=== PATIENT | male | born 1975 | race Two or more races ===

== ENCOUNTER 2021-04-26 00:52 | Emergency (ER) | payer SELFPAY ==
[~2021-04-26] VITALS: Ht 175.3 cm; Wt 65.8 kg
[2021-04-26 02:00] VITALS: BP 136/93
[2021-04-26] MEDS ORDERED: OXYCODONE W/ ACETAMINOPHEN 5/325MG TABLET PO ONE (03:00)
[2021-04-26] MEDS ORDERED: KETOROLAC TROMETH 30 MG/ML 1ML VIAL IM ONE (03:00)
[2021-04-26] MEDS ORDERED: diazePAM 5 MG TAB PO ONE (03:00)
== END 2021-04-26 06:04 | disposition home or self-care (01) ==
LOC: EDBD 00:52 → ER 00:58
DX: S16.1XXA Strain of muscle, fascia and tendon at neck level, initial encounter (principal); S39.012A Strain of muscle, fascia and tendon of lower back, initial encounter; S29.012A Strain of muscle and tendon of back wall of thorax, initial encounter; V49.49XA Driver injured in collision with other motor vehicles in traffic accident, initial encounter; Y93.89 Activity, other specified; Y92.488 Other paved roadways as the place of occurrence of the external cause; Y99.8 Other external cause status
CPT/HCPCS: 72070; 72100; 96372; 99284; J1885